=== PATIENT | male | born 1975 | race Caucasian/White ===

== ENCOUNTER 2019-08-18 18:44 | Emergency (ER) | payer MEDICARE, OTHER ==
[~2019-08-18] VITALS: Ht 172.7 cm; Wt 89.7 kg
[2019-08-18] MEDS ORDERED: Ocuflox5 ML BOTHEYES (19:42)
== END 2019-08-18 20:00 | disposition home or self-care (01) ==
LOC: ER 18:44
DX: H10.9 Unspecified conjunctivitis (principal); Z88.0 Allergy status to penicillin
CPT/HCPCS: 99282

== ENCOUNTER 2019-08-21 10:28 | Emergency (ER) | payer MEDICARE, OTHER ==
[~2019-08-21] VITALS: Ht 172.7 cm; Wt 88.9 kg
[~2019-08-21 10:28] MED LIST: Ocuflox5 ML BOTHEYES
[2019-08-21] MEDS ORDERED: Mobic15 MG (10:47)
[2019-08-21] MEDS ORDERED: IBU800 M1 (10:47)
[2019-08-21] MEDS ORDERED: BACL10 (10:47)
[2019-08-21] MEDS ORDERED: PREDNISOLONE ACE5 ML RIGHTEYE (13:07)
== END 2019-08-21 13:25 | disposition home or self-care (01) ==
LOC: ER 10:28
DX: H20.9 Unspecified iridocyclitis (principal); Z88.0 Allergy status to penicillin; Z79.899 Other long term (current) drug therapy; Z87.891 Personal history of nicotine dependence
CPT/HCPCS: 99283

== ENCOUNTER 2019-10-10 20:46 | Emergency (ER) | payer MEDICARE, OTHER ==
[~2019-10-10] VITALS: Ht 172.7 cm; Wt 74.8 kg
[~2019-10-10 20:46] MED LIST changes: +BACL10; +IBU800 M1; +Mobic15 MG; +PREDNISOLONE ACE5 ML RIGHTEYE
[2019-10-10] MEDS ORDERED: ALBU3IS INH (21:00)
[2019-10-10 21:14] LABS: BASOPHILS ABSOLUTE AUTO 0.05 K/mm3 (0.00-0.23); BASOPHILS PERCENT AUTO 0 % (0-2); EOSINOPHILS ABSOLUTE AUTO 0.29 K/mm3 (0.00-0.68); EOSINOPHILS PERCENT AUTO 3 % (0-6); Hematocrit 42.9 % (37.0-53.0); Hemoglobin 14.6 g/dL (13.5-17.5); IMMATURE GRAN ABSOLUTE AUTO 0.04 K/mm3 (0.00-0.10); IMMATURE GRAN PERCENT AUTO 0 % (0-1); LYMPHOCYTES ABSOLUTE AUTO 6.07 K/mm3 (0.84-5.20); LYMPHOCYTES PERCENT AUTO 53 % (21-46); MONOCYTES ABSOLUTE AUTO 0.45 K/mm3 (0.16-1.47); MONOCYTES PERCENT AUTO 4 % (4-13); Mean Corpuscular HGB 30.2 pg (26.0-34.0); Mean Corpuscular Volume 89 fL (80-100); Mean Platelet Volume 9.9 fL (9.1-12.4); NEUTROPHILS ABSOLUTE AUTO 4.56 K/mm3 (1.96-9.15); NEUTROPHILS PERCENT AUTO 40 % (41-73); Platelet Count 316 K/mm3 (150-400); RDW Coefficient Variation 12.2 % (11.7-14.2); RDW Standard Deviation 39.7 fL (35.1-46.3); Red Blood Cell Count 4.84 M/mm3 (4.30-5.90); White Blood Cell Count 11.46 K/mm3 (4.00-11.30)
[2019-10-10 21:39] LABS: Alanine Aminotransfer (ALT/SGP 69 U/L (12-78); Albumin/Globulin Ratio 1.2 (0.8-1.8); Alk Phos 104 U/L (50-136); Anion Gap 8 mmol/L (6-16); Aspartate Aminotrans (AST/SGOT 29 U/L (12-37); Bilirubin, Total 0.2 mg/dL (0.1-1.0); Blood Urea Nitrogen 14 mg/dL (8-24); Bun/Creatinine Ratio 11.7 (12.0-20.0); CO2, Blood 23 mmol/L (21-32); Calcium, Blood 8.6 mg/dL (8.5-10.1); Chloride, Blood 106 mmol/L (98-108); Globulin, Blood 3.4 g/dL (2.2-4.0); Glomerular Filtration Rate >60 (60-); Glucose, Blood 244 mg/dL (70-99); Potassium, Blood 3.5 mmol/L (3.5-5.5); Sodium, Blood 137 mmol/L (136-145); Total Protein, Blood 7.4 g/dL (6.4-8.2); Troponin I <0.015 ng/mL (0.000-0.040)
[2019-10-10] MEDS ORDERED: Prednisone50 MG PO (22:36)
[2019-10-10] MEDS ORDERED: ALBU90OI INH (22:36)
== END 2019-10-10 23:05 | disposition home or self-care (01) ==
LOC: ER 20:46
PROVIDERS: Emergency Medicine
DX: J45.901 Unspecified asthma with (acute) exacerbation (principal); Z88.0 Allergy status to penicillin; Z79.899 Other long term (current) drug therapy; Z79.51 Long term (current) use of inhaled steroids; Z87.891 Personal history of nicotine dependence
CPT/HCPCS: 36415; 71046; 80053; 83880; 84484; 85025; 93005; 93010; 94640; 96374; 99284-25; J1100

== ENCOUNTER 2020-03-25 08:50 | Emergency (ER) | payer MEDICARE, OTHER ==
[~2020-03-25] VITALS: Ht 172.7 cm; Wt 92.5 kg
[~2020-03-25 08:50] MED LIST changes: +ALBU3IS INH; +ALBU90OI INH; +Prednisone50 MG PO
[2020-03-25] MEDS ORDERED: KEFLEX500 MG PO (10:17)
[2020-03-25] MEDS ORDERED: SULFAMETHOXAZO1 EAC1 PO (10:17)
== END 2020-03-25 10:05 | disposition home or self-care (01) ==
LOC: ER 08:50
DX: H60.01 Abscess of right external ear (principal); Z88.0 Allergy status to penicillin; Z88.8 Allergy status to other drugs, medicaments and biological substances; Z79.899 Other long term (current) drug therapy; J45.909 Unspecified asthma, uncomplicated; Z87.891 Personal history of nicotine dependence
CPT/HCPCS: 10060; 99282-25

== ENCOUNTER → 2020-09-04 | Outpatient (CLI) | payer MEDICARE, OTHER ==
[~2020-09-04] MED LIST changes: +CYCL10 PO; +KEFLEX500 MG PO; +SULFAMETHOXAZO1 EAC1 PO
== END ==
LOC: LAB SHORT 14:06 → PLD 14:06
DX: D22.5 Melanocytic nevi of trunk (principal)
CPT/HCPCS: 88305

== ENCOUNTER 2021-02-04 13:18 | Emergency (ER) | payer OTHER ==
[~2021-02-04] VITALS: Ht 172.7 cm; Wt 92.5 kg
[~2021-02-04 13:18] MED LIST changes: -CYCL10 PO
[2021-02-04] MEDS ORDERED: CYCL10 PO (14:37)
== END 2021-02-04 14:55 | disposition home or self-care (01) ==
LOC: ER 13:18
DX: S39.012A Strain of muscle, fascia and tendon of lower back, initial encounter (principal); Z87.891 Personal history of nicotine dependence; Z88.0 Allergy status to penicillin; Z88.8 Allergy status to other drugs, medicaments and biological substances; X58.XXXA Exposure to other specified factors, initial encounter
CPT/HCPCS: 96372; 99282-25; J1885